=== PATIENT | female | born 1975 | race Caucasian/White ===

== ENCOUNTER 2017-12-28 21:45 | Emergency (ER) | payer BC ==
[~2017-12-28] VITALS: Ht 162.6 cm; Wt 73.0 kg
[2017-12-28 21:55] VITALS: BP 140/78; PULSE 118; RESP 17; TEMP 98
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
[2017-12-29 00:19] LABS: ALBUMIN 3.9 GM/DL (3.4-5.0); AST (GOT) 33 U/L (15-37); BLOOD UREA NITROGEN 3 MG/DL (7-18); CALCIUM 8.2 MG/DL (8.5-10.1); CHLORIDE 115 MEQ/L (98-107); CREATININE 0.82 MG/DL (0.50-1.00); GLOMERULAR FILTRATION RATE 77 ML/MIN (>89); GLUCOSE,RANDOM 88 MG/DL (74-106); SODIUM (NA) 146 MEQ/L (136-145)
[2017-12-29 00:20] LABS: ALKALINE PHOSPHATASE 81 U/L (45-117); ALT (GPT) 33 U/L (10-53); TOTAL BILIRUBIN ADULT 0.2 MG/DL (0.2-1.0); TOTAL PROTEIN 7.9 GM/DL (6.4-8.2)
[2017-12-29 00:33] LABS: ACETAMINOPHEN LESS THAN 2.0 MCG/ML (10.0-30.0)
[2017-12-29 00:42] LABS: BASOPHIL # 0.1 TH/MM3 (0-0.2); BASOPHIL % 0.8 % (0.0-2.0); EOSINOPHIL # 0.1 TH/MM3 (0-0.4); EOSINOPHIL % 0.8 % (0.0-4.0); HEMATOCRIT 37.6 % (35.0-46.0); HEMOGLOBIN 12.7 GM/DL (11.6-15.3); LYMPHOCYTE # 2.1 TH/MM3 (1.0-4.8); MEAN CORPUSCULAR HEMOGLOBIN 31.5 PG (27.0-34.0); MEAN CORPUSCULAR HGB CONC 33.8 % (32.0-36.0); MEAN PLATELET VOLUME 8.9 FL (7.0-11.0); MONO % 5.5 % (0.0-8.0); MONOCYTE # 0.4 TH/MM3 (0-0.9); NEUT % 64.9 % (16.0-70.0); PLATELET COUNT 265 TH/MM3 (150-450); RED BLOOD COUNT 4.05 MIL/MM3 (4.00-5.30); RED CELL DISTRIBUTION WIDTH 12.5 % (11.6-17.2); WHITE BLOOD COUNT 7.6 TH/MM3 (4.0-11.0)
[2017-12-29 01:00] VITALS: BP 113/54; PULSE 104; RESP 17; TEMP 99; O2SAT 98
[2017-12-29 03:15] VITALS: BP 113/54; PULSE 104; RESP 17; TEMP 99; O2SAT 98
[2017-12-29 03:19] VITALS: BP 113/54; PULSE 104; RESP 17; TEMP 99; O2SAT 98
[2017-12-29 06:50] VITALS: BP 116/56; PULSE 99; RESP 16; TEMP 98.9; O2SAT 99
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
--- NOTE | 2017-12-29 11:10 | PD ---
Physical Exam Time Seen by Provider: 11:[address] Adler evaluated the patient, lifted the Corley act and cleared patient for discharge. Data Data Last Documented VS Vital Signs Date Time Temp Pulse Resp B/P (MAP) Pulse Ox O2 Delivery O2 Flow Rate FiO2 12/29/17 06:50 98.9 99 16 116/56 (76) 99 Room Air Orders Orders Complete Blood Count With Diff (12/28/17 22:00) Comprehensive Metabolic Panel (12/28/17 22:00) Thyroid Stimulating Hormone (12/28/17 22:00) Psych Screen (12/28/17 22:00) Drug Screen, Random Urine (12/28/17 22:00) Alcohol (Ethanol) (12/28/17 22:00) Salicylates (Aspirin) (12/28/17 22:00) Tylenol (Acetaminophen) (12/28/17 22:00) Ed Urine Pregnancytest Poc (12/28/17 23:26) Diet Regular Basic (12/29/17 Breakfast) Labs Laboratory Tests Test 12/28/17 22:30 12/28/17 23:11 12/29/17 00:20 Urine Opiates Screen NEG Urine Barbiturates Screen NEG Urine Amphetamines Screen NEG Urine Benzodiazepines Screen NEG Urine Cocaine Screen NEG Urine Cannabinoids Screen NEG Blood Urea Nitrogen 3 MG/DL Creatinine 0.82 MG/DL Random Glucose 88 MG/DL Total Protein 7.9 GM/DL Albumin 3.9 GM/DL Calcium Level 8.2 MG/DL Alkaline Phosphatase 81 U/L Aspartate Amino Transf (AST/SGOT) 33 U/L Alanine Aminotransferase (ALT/SGPT) 33 U/L Total Bilirubin 0.2 MG/DL Sodium Level 146 MEQ/L Potassium Level 3.9 MEQ/L Chloride Level 115 MEQ/L Carbon Dioxide Level 19.0 MEQ/L Anion Gap 12 MEQ/L Estimat Glomerular Filtration Rate 77 ML/MIN Thyroid Stimulating Hormone 3rd Gen 0.869 uIU/ML Salicylates Level LESS THAN 1.7 MG/DL Acetaminophen Level LESS THAN 2.0 MCG/ML Ethyl Alcohol Level 287 MG/DL White Blood Count 7.6 TH/MM3 Red Blood Count 4.05 MIL/MM3 Hemoglobin 12.7 GM/DL Hematocrit 37.6 % Mean Corpuscular Volume 93.0 FL Mean Corpuscular Hemoglobin 31.5 PG Mean Corpuscular Hemoglobin Concent 33.8 % Red Cell Distribution Width 12.5 % Platelet Count 265 TH/MM3 Mean Platelet Volume 8.9 FL Neutrophils (%) (Auto) 64.9 % Lymphocytes (%) (Auto) 28.0 % Monocytes (%) (Auto) 5.5 % Eosinophils (%) (Auto) 0.8 % Basophils (%) (Auto) 0.8 % Neutrophils # (Auto) 5.0 TH/MM3 Lymphocytes # (Auto) 2.1 TH/MM3 Monocytes # (Auto) 0.4 TH/MM3 Eosinophils # (Auto) 0.1 TH/MM3 Basophils # (Auto) 0.1 TH/MM3 CBC Comment DIFF FINAL Differential Comment MDM Supervised Visit with [facility]: No Narrative Course Dr. Adler evaluated the patient, lifted the Corley act and cleared patient for discharge. Patient contracts safety. Denies suicidal or homicidal ideations. Patient will be provided community resource packet to [facility] for follow-up. Has friends and family for support. Patient was medically cleared by alternate provider prior to psych screening. Patient has been evaluated by psychiatry and and is now cleared for discharge. Diagnosis Primary Impression: Alcohol intoxication Qualified Codes: F10.920 - Alcohol use, unspecified with intoxication, uncomplicated Referrals: [facility] (Out patient) [facility] Primary Care Physician Psychiatrist [facility] Patient Instructions: Abuse of Alcohol (ED), Alcohol Dependence (ED), Alcohol Intoxication (ED), General Instructions Additional Instruction: Contract safety to your self and others Drink alcohol in moderation or stop drinking Follow-up in the community with Alcoholics Anonymous for support Follow-up with psychiatry Follow-up with primary care provider Follow-up with Rick Morris Return to the emergency department immediately with worsening of symptoms Med/Other Pt SpecificInfo: No Change to Meds, No Meds Exist/No RX given Disposition: 01 DISCHARGE HOME Condition: Stable Oxana De La Garza December 29, 2017 11:10
== END 2017-12-29 12:27 | disposition home or self-care (01) ==
LOC: NEPJ 21:45
DX: Z02.89 Encounter for other administrative examinations (principal); F10.929 Alcohol use, unspecified with intoxication, unspecified; R00.0 Tachycardia, unspecified; Y90.8 Blood alcohol level of 240 mg/100 ml or more
CPT/HCPCS: 80053; 80307; 84443; 84703; 85025; 99284